=== PATIENT | male | born 1975 | race Caucasian/White ===

== ENCOUNTER 2018-11-03 21:19 | Observation (INO) | payer OTHER ==
[2018-11-03 22:14] LABS: Absolute Lymphocytes (CBC) 3.8 K/uL (0.7-4.9); Absolute Monocytes 0.9 K/uL (0.1-1.3); Absolute Neutrophil 5.8 K/uL (1.8-8.0); Basophils % 0.9 % (0-1.3); Eosinophils % 3.8 % (0-4.4); Hematocrit 45.3 % (39.6-49.0); Lymphocytes % 34.6 % (15.3-44.8); MPV 8.8 fL (7.6-11.3); Monocytes % 8.5 % (3.3-12.3); RBC Red Blood Cell Count 4.96 M/uL (4.33-5.43)
[2018-11-03 22:21] LABS: Protime INR 1.06
[2018-11-03 22:33] LABS: ALT/SGPT 93 U/L (12-78); AST/SGOT 43 U/L (15-37); Albumin 3.6 g/dL (3.4-5.0); Alkaline Phosphatase 102 U/L (45-117); BUN Blood Urea Nitrogen 11 mg/dL (7-18); Bicarbonate 25 mmol/L (21-32); Bilirubin Direct 0.2 mg/dL (0-0.2); Bilirubin Total 0.6 mg/dL (0.2-1.0); Glucose Level 114 mg/dL (74-106); Magnesium 1.9 mg/dL (1.8-2.4); NT PRO-BNP 9 pg/mL (<125); Potassium 4.1 mmol/L (3.5-5.1); Protein, Total 7.7 g/dL (6.4-8.2); Sodium Level 138 mmol/L (136-145); Troponin (Emerg Dept Use Only) < 0.02 ng/mL (0.0-0.045)
--- NOTE | 2018-11-04 00:25 | EDPHYS ---
Physician Documentation [facility] Name: Miguel Naranjo Age: 43 yrs Sex: Male : 1975 Arrival Date: 11/03/2018 Time: 21:22 Bed 26 Private MD: ED Physician Antolin Hoskins HPI: 11/03 21:54 This 43 yrs old Male presents to ER via Ambulatory with complaints of Chest jmm Discomfort, High Blood Pressure. 21:54 The patient or guardian reports chest pain that is located primarily in the substernal jmm area. Onset: gradually, this morning. The pain radiates to the left shoulder. Associated signs and symptoms: Pertinent negatives: shortness of breath. The chest pain is described as aching, tightness. Duration: The patient or guardian reports a single episode, that is now resolved. Modifying factors: The symptoms are alleviated by nothing. the symptoms are aggravated by nothing. This is a 43 year old male with a history of htn, DM, SC that presents to the ED with substernal chest pain beginning this morning worsening thoughout the day. Patient states the pain radiates to the left shoulder. . Historical: - Allergies: 21:48 No Known Allergies; mg2 - Home Meds: 11/04 00:57 metoprolol tartrate 100 mg Oral tab 1 tab once daily [Active]; losartan 50 mg oral tab mg2 1 tab once daily [Active]; metformin 1,000 mg Oral tab 1 tab 2 times per day [Active]; glimepiride 2 mg Oral tab once daily [Active]; One-A-Day Men's Multivitamin oral oral [Active]; aspirin 81 mg Oral chew 1 tab once daily [Active]; marisol red ultra strength [Active]; atorvastatin 10 mg oral tab 1 tab once daily [Active]; - PMHx: 11/03 21:48 Hypertension; Diabetes - NIDDM; Myocardial infarction; mg2 11/04 00:57 Hyperlipidemia; mg2 - PSHx: 11/03 21:48 Heart stents; mg2 - Immunization history:: Flu vaccine is not up to date. - Social history:: Smoking status: Patient uses tobacco products, smokes one pack cigarettes per day. Patient uses alcohol, but reports only rare drinking. Patient/guardian denies using IV drugs. - Ebola Screening: : No symptoms or risks identified at this time. ROS: 21:54 Constitutional: Negative for fever, chills, and weight loss. [facility] 21:54 Abdomen/GI: Negative for abdominal pain, nausea, vomiting, diarrhea, and constipation, MS/Extremity: Negative for injury and deformity, Skin: Negative for injury, rash, and discoloration, Neuro: Negative for headache, weakness, numbness, tingling, and seizure. 21:54 Cardiovascular: Positive for chest pain. 21:54 Respiratory: Negative for shortness of breath. 21:54 All other systems are negative. Exam: 21:54 Head/Face: atraumatic. Eyes: EOMI, no conjunctival erythema appreciated ENT: Moist [facility] Mucus Membranes Neck: Trachea midline, Supple Chest/axilla: Normal chest wall appearance and motion. 21:54 Constitutional: The patient appears in no acute distress, alert, awake. 21:54 Cardiovascular: Rate: normal, Rhythm: regular, Pulses: no pulse deficits are appreciated. 21:54 Respiratory: the patient does not display signs of respiratory distress, Respirations: normal, Breath sounds: are clear throughout. 21:54 Abdomen/GI: Inspection: abdomen appears normal, Bowel sounds: normal, Palpation: abdomen is soft and non-tender, in all quadrants. 21:54 Back: ROM is normal. 21:54 Musculoskeletal/extremity: ROM: intact in all extremities. 21:54 Skin: Appearance: Color: normal in color. 21:54 Neuro: Orientation: is normal, Mentation: is normal, Memory: is normal. 21:54 Psych: Behavior/mood is pleasant, cooperative. Vital Signs: 21:47 BP 162 / 82; Pulse 82; Resp 18; Temp 99.2; Pulse Ox 96% on R/A; Weight 121.56 kg; mg2 Height 5 ft. 7 in. (170.18 cm); Pain 0/10; 23:15 BP 146 / 79; Pulse 82; Resp 18; Pulse Ox 95% on R/A; Pain 0/10; mg2 23:58 BP 136 / 80; Pulse 81; Resp 18; Pulse Ox 96% on R/A; Pain 0/10; mg2 21:47 Body Mass Index 41.97 (121.56 kg, 170.18 cm) mg2 MDM: 21:[address] [facility] 11/04 00:17 The patient was given aspirin in the Emergency Department. Data reviewed: vital signs, [facility] nurses notes, lab test result(s), EKG, radiologic studies, plain films. 00:23 Counseling: I had a detailed discussion with the patient and/or guardian regarding: the [facility] historical points, exam findings, and any diagnostic results supporting the discharge/admit diagnosis, lab results, the need for further work-up and treatment in the hospital. ED course: I discussed the patient with Dr. To whom accepted admission for Dr. Will. . 11/03 21:43 Order name: Basic Metabolic Panel; Complete Time: 22:34 [facility] 11/03 23:49 Interpretation: Within normal limits: NA 138. [facility] 11/03 21:43 Order name: CBC with Diff; Complete Time: 22:34 [facility] 11/03 21:43 Order name: LFT's; Complete Time: 22:34 [facility] 11/03 21:43 Order name: Magnesium; Complete Time: 22:34 [facility] 11/03 21:43 Order name: NT PRO-BNP; Complete Time: 22:34 [facility] 11/03 21:43 Order name: PT-INR; Complete Time: 22:34 [facility] 11/03 21:43 Order name: Troponin (emerg Dept Use Only); Complete Time: 22:34 [facility] 11/03 22:21 Order name: D-Dimer; Complete Time: 22:34 [facility] 11/04 00:11 Order name: Troponin I [facility] 11/04 00:28 Order name: Basic Metabolic Panel [facility] 11/04 00:28 Order name: Basic Metabolic Panel [facility] 11/04 00:28 Order name: CBC with Automated Diff [facility] 11/04 00:28 Order name: CBC with Automated Diff [facility] 11/03 21:43 Order name: XRAY Chest (1 view) [facility] 11/03 21:43 Order name: EKG; Complete Time: 21:44 [facility] 11/03 21:43 Order name: Cardiac monitoring; Complete Time: 22: [facility] 11/03 21:43 Order name: EKG - Nurse/Tech; Complete Time: 22:01 [facility] 11/03 21:43 Order name: IV Saline Lock; Complete Time: 22: [facility] 11/03 21:43 Order name: Labs collected and sent; Complete Time: 22: [facility] 11/03 21:43 Order name: O2 Per Protocol; Complete Time: 22: [facility] 11/04 00:28 Order name: EKG Electrocardiogram [facility] 11/04 00:28 Order name: EKG Electrocardiogram [facility] 11/04 00:28 Order name: EKG Electrocardiogram [facility] 11/04 00:28 Order name: EKG Electrocardiogram [facility] 11/04 00:28 Order name: Troponin I [facility] 11/04 00:28 Order name: Troponin I [facility] 11/04 00:28 Order name: Troponin I [facility] 11/03 21:43 Order name: O2 Sat Monitoring; Complete Time: 22:01 [facility] Administered Medications: 00:26 Not Given (Physician Discretion): Aspirin Chewable Tablet 324 mg PO once; 81 mg tablets mg2 x 4 00:26 Drug: Aspirin Chewable Tablet 162 mg Route: PO; mg2 01:00 Follow up: Response: No adverse reaction mg2 Disposition: 01:36 Co-signature as Attending Physician, Antolin Hoskins MD. pkroberto carlos Disposition: 11/04/18 00:25 Hospitalization ordered by Louie Will for Observation. Preliminary diagnosis is Chest pain, unspecified. - Bed requested for Telemetry/MedSurg (observation). - Status is Observation. mg2 - Condition is Stable. - Problem is an ongoing problem. - Symptoms have improved. UTI on Admission? No Signatures: Dispatcher [employer] [facility] Megan Bran RN RN Antolin Way MD MD pkl Morteza Henderson PA PA Wilfred Narvaez RN RN mg2 Corrections: (The following items were deleted from the chart) 11/03 22:20 22:08 D-DIMER+COAG.LAB.BRZ ordered. [facility] 11/04 00:35 00:25 Hospitalization Ordered by Louie Will MD for Observation. Preliminary diagnosis mw is Chest pain, unspecified. Bed requested for Telemetry/MedSurg (observation). Status is Observation. Condition is Stable. Problem is an ongoing problem. Symptoms have improved. UTI on Admission? No. akt : 00:35 11/04/2018 00:25 Hospitalization Ordered by Louie Will MD for Observation. mg2 Preliminary diagnosis is Chest pain, unspecified. Bed requested for Telemetry/MedSurg (observation). Status is Observation. Condition is Stable. Problem is an ongoing problem. Symptoms have improved. UTI on Admission? No. mw
--- NOTE | 2018-11-04 00:25 | ER ---
Nurse's Notes [facility] Name: Miguel Naranjo Age: 43 yrs Sex: Male : 1975 Arrival Date: 11/03/2018 Time: 21:22 Bed 26 Private MD: Diagnosis: Chest pain, unspecified Presentation: 11/03 21:45 Presenting complaint: Patient states: on and off chest pain, dizziness and shortness of mg2 breath since morning. history of OR when he was 34 years old. Transition of care: patient was not received from another setting of care. Onset of symptoms was November 03, 2018. Risk Assessment: Do you want to hurt yourself or someone else? Patient reports no desire to harm self or others. Initial Sepsis Screen: Does the patient meet any 2 criteria? No. Patient's initial sepsis screen is negative. Does the patient have a suspected source of infection? No. Patient's initial sepsis screen is negative. Care prior to arrival: None. 21:45 Method Of Arrival: Ambulatory mg2 21:45 Acuity: ANSELMO 3 mg2 Historical: - Allergies: 21:48 No Known Allergies; mg2 - Home Meds: 11/04 00:57 metoprolol tartrate 100 mg Oral tab 1 tab once daily [Active]; losartan 50 mg oral tab mg2 1 tab once daily [Active]; metformin 1,000 mg Oral tab 1 tab 2 times per day [Active]; glimepiride 2 mg Oral tab once daily [Active]; One-A-Day Men's Multivitamin oral oral [Active]; aspirin 81 mg Oral chew 1 tab once daily [Active]; marisol red ultra strength [Active]; atorvastatin 10 mg oral tab 1 tab once daily [Active]; - PMHx: 11/03 21:48 Hypertension; Diabetes - NIDDM; Myocardial infarction; mg2 11/04 00:57 Hyperlipidemia; mg2 - PSHx: 11/03 21:48 Heart stents; mg2 - Immunization history:: Flu vaccine is not up to date. - Social history:: Smoking status: Patient uses tobacco products, smokes one pack cigarettes per day. Patient uses alcohol, but reports only rare drinking. Patient/guardian denies using IV drugs. - Ebola Screening: : No symptoms or risks identified at this time. Screenin:01 Abuse screen: Denies threats or abuse. Denies injuries from another. Nutritional mg2 screening: No deficits noted. Tuberculosis screening: No symptoms or risk factors identified. Fall Risk IV access (20 points). Assessment: 22:02 General: Appears in no apparent distress. comfortable, Behavior is calm, cooperative. mg2 Pain: Denies pain. Neuro: Level of Consciousness is awake, alert, obeys commands, Oriented to person, place, time, situation. Neuro: Reports dizziness. Cardiovascular: Capillary refill < 3 seconds Patient's skin is warm and dry. Chest pain on and off chest since morning. Respiratory: Airway is patent Respiratory effort is even, unlabored, Respiratory pattern is regular, symmetrical. GI: No signs and/or symptoms were reported involving the gastrointestinal system. : No signs and/or symptoms were reported regarding the genitourinary system. EENT: No signs and/or symptoms were reported regarding the EENT system. Derm: Skin is intact, is healthy with good turgor, Skin is pink, warm \T\ dry. normal. Musculoskeletal: No signs and/or symptoms reported regarding the musculoskeletal system. Vital Signs: 21:47 BP 162 / 82; Pulse 82; Resp 18; Temp 99.2; Pulse Ox 96% on R/A; Weight 121.56 kg; mg2 Height 5 ft. 7 in. (170.18 cm); Pain 0/10; 23:15 BP 146 / 79; Pulse 82; Resp 18; Pulse Ox 95% on R/A; Pain 0/10; mg2 23:58 BP 136 / 80; Pulse 81; Resp 18; Pulse Ox 96% on R/A; Pain 0/10; mg2 21:47 Body Mass Index 41.97 (121.56 kg, 170.18 cm) mg2 ED Course: 21:22 Patient arrived in ED. ds1 21:39 Morteza Henderson PA is PHCP. jmm 21:39 Antolin Hoskins MD is Attending Physician. [facility] 21:47 Triage completed. mg2 21:49 Wilfred Galdamez, KENYON is Primary Nurse. mg2 22:02 No provider procedures requiring assistance completed. Inserted saline lock: 22 gauge mg2 in left antecubital area, using aseptic technique. Blood collected. 22:02 Patient has correct armband on for positive identification. environmental monitoring specialist on. Pulse mg2 ox on. NIBP on. Door closed. 22:04 Arm band placed on. mg2 22:20 X-ray completed. Portable x-ray completed in exam room. Patient tolerated procedure ls3 well. 22:23 XRAY Chest (1 view) In Process Unspecified. EDMS 11/04 00:24 Louie Will MD is Hospitalizing Provider. [facility] 00:57 Patient admitted, IV remains in place. mg2 Administered Medications: 00:26 Not Given (Physician Discretion): Aspirin Chewable Tablet 324 mg PO once; 81 mg tablets mg2 x 4 00:26 Drug: Aspirin Chewable Tablet 162 mg Route: PO; mg2 01:00 Follow up: Response: No adverse reaction mg2 Outcome: 00:25 Decision to Hospitalize by Provider. [facility] 00:57 Admitted to Tele accompanied by tech, via wheelchair, room 404, with chart, Report mg2 called to KENYON Temple 00:57 Condition: stable 00:57 Instructed on the need for admit, Demonstrated understanding of instructions. 01:01 Patient left the ED. mg2 Signatures: Dispatcher [employer] EDMS Morteza Henderson PA PA jmm Sanford, Demi ds1 Wilfred Galdamez, RN RN mg2 Papito Bennett ls3
[2018-11-04] MEDS ORDERED: ACETAMINOPHEN 500 MG TAB PO PRN (00:26)
[2018-11-04] MEDS ORDERED: ONDANSETRON 4 MG/2 ML VIAL IV PRN (00:26)
[2018-11-04] MEDS ORDERED: ASPIRIN 81 MG CHEWABLE TABLET ONE (00:28)
[2018-11-04 07:28] LABS: Urine Appearance CLEAR; Urine Bilirubin NEGATIVE (NEG); Urine Blood NEGATIVE (NEG); Urine Color YELLOW; Urine Glucose NEGATIVE (NEG); Urine Protein NEGATIVE (NEG); Urine Specific Gravity 1.025 (1.005-1.030); Urine Urobilinogen 0.2 mg/dL (0.2-1.0)
[2018-11-04 07:30] LABS: Urine Microscopic Reflex NO UMIC
--- NOTE | 2018-11-04 07:57 | RAD REPORT ---
EXAM DESCRIPTION: RAD - Chest Single View - 11/03/2018 10:22 pm CLINICAL HISTORY: Chest pain COMPARISON: April 2010 TECHNIQUE: AP portable chest image was obtained 2208 hours . FINDINGS: Lungs are clear. Heart and vasculature are normal. No measurable pleural effusion and no p neumothorax. No acute bony abnormality seen. No acute aortic findings suspected. IMPRESSION: No acute cardiopulmonary process. No suspicious interval change.
--- NOTE | 2018-11-04 07:58 | EKG ---
Test Date: 2018-11-03 Test Time: 21:38:30 Insulation Helper: MEASUREMENT RESULTS: Intervals: Rate: 84 MI: 150 QRSD: 88 QT: 352 QTc: 415 [place]: P: 52 MI: 150 QRS: 47 T: 29 INTERPRETIVE STATEMENTS: Normal sinus rhythm Normal ECG Compared to ECG 04/12/2010 05:55:22 Sinus arrhythmia no longer present ST (T wave) deviation no longer present Electronically Signed On 11-04-18 07:57:04 CLUB STEWARD by Laith Fischer
[2018-11-04] MEDS ORDERED: GLIMEPIRIDE 2 MG TABLET PO SCH (08:00)
[2018-11-04] MEDS ORDERED: METFORMIN HCL 500 MG TAB PO SCH (08:00)
[2018-11-04] MEDS ORDERED: METOPROLOL XL 100 MG TAB PO SCH (09:00)
[2018-11-04] MEDS ORDERED: LOSARTAN POTASSIUM 50 MG TABLET PO SCH (09:00)
[2018-11-04] MEDS ORDERED: ASPIRIN EC 81 MG TAB PO SCH ×2 (09:00)
[2018-11-04] MEDS ORDERED: [UNRECOGNIZED DRUG - OTHER] PO SCH (09:00)
[2018-11-04] MEDS ORDERED: REGADENOSON 0.4 MG/5 ML SYR IV ONE (09:32)
--- NOTE | 2018-11-04 11:05 | ECHO ---
HEIGHT: 5 ft 7 in WEIGHT: 263 lb 0 oz DATE OF STUDY: 11/04/[address]: Laith Fischer MD 2-DIMENSIONAL: YES M.MODE: YES DOPPLER: YES COLOR FLOW: YES TDS: NO PORTABLE: NO DEFINITY: NO BUBBLE STUDY: NO DIAGNOSIS: CHEST PAIN CARDIAC HISTORY: CATHERIZATION: NO SURGERY: NO PROSTHETIC VALVE: NO PACEMAKER: NO MEASUREMENTS (cm) DIASTOLIC (NORMALS) SYSTOLIC (NORMALS) IVSd 1.2 (0.6-1.2) LA Diam 3.4 (1.9-4.0) LVEF 69% LVIDd 3.6 (3.5-5.7) LVIDs 2.2 (2.0-3.5) %FS 38% LVPWd 1.1 (0.6-1.2) Ao Diam 2.4 (2.0-3.7) 2 DIMENSIONAL ASSESSMENT: RIGHT ATRIUM: NORMAL LEFT ATRIUM: NORMAL RIGHT VENTRICLE: NORMAL LEFT VENTRICLE: NORMAL TRICUSPID VALVE: NORMAL MITRAL VALVE: NORMAL PULMONIC VALVE: NORMAL AORTIC VALVE: NORMAL PERICARDIAL EFFUSION: NONE AORTIC ROOT: NORMAL LEFT VENTRICULAR WALL MOTION: NORMAL. DOPPLER/COLOR FLOW: NORMAL. COMMENTS: NORMAL 2D ECHO WITH DOPPLER TECHNOLOGIST: CARLOS HADDAD
--- NOTE | 2018-11-04 13:37 | CON ---
History Of Present Illness: Mr. Naranjo is 43. He came to the hospital with chest pain. Mr. Diamond greenberg has a history of CAD. A stent was placed in one of his arteries in 2007 or 2008. Since then, he h as had no further interventions. He sees Dr. Carlson. He says it has been many years since he had any testing done on his heart. He is a continuing cigarette smoker. Alcohol use, moderate. Medications: Outpatient medications are Megace, multivitamin, aspirin, metformin, glimepiride, losar doll, metoprolol, and atorvastatin 10 mg. Allergies: HE HAS NO ALLERGIES. Past Medical History: He has underlying diabetes, hypertension, remote history of coronary heart dis ease, and obesity. Physical Examination: Vital signs: Five feet and 7 inch, 263 pounds. HEENT: Normal. Lungs: Clear. Carotids: No bruit. Heart: Within normal limits. Extremities: No cyanosis, clubbing, or edema. Laboratory Data: Laboratory exam reveals normal troponins. Blood sugar 114. Impression: I think the patient should have a nuclear stress test and echo. We will base our decisi on whether to repeat a cardiac cath on those 2 tests. Thank you very much for your kind referral of Mr. Naranjo. I will follow him with you. JESU/MEGAN Voice ID: [id number] Report ID: [id number]
--- NOTE | 2018-11-04 14:05 | RAD REPORT ---
EXAM DESCRIPTION: NM - Rest Stress Cardiac Imaging - 11/04/2018 1:58 pm CLINICAL HISTORY: CP Chest pain. COMPARISON: No comparisons TECHNIQUE: The patient was administered approximately 10mCi of Tc 99m Sestamibi prior to resting SPE CT imaging of the heart. The patient was then administered approximately 30 mCi of Tc 99m Sestamibi f ollowing exercise or pharmacologic stress. Multiplanar SPECT images were reviewed. FINDINGS: No stress induced ischemic defect is seen to suggest stress induced ischemia. No fixed def ect is seen to suggest hibernating myocardium or scarred myocardium. The end diastolic volume is 73 ml, the end systolic volume is 26 ml, and the ejection fraction is 65 %. IMPRESSION: No stress induced ischemia.
--- NOTE | 2018-11-04 15:16 | RAD REPORT ---
EXAM DESCRIPTION: CT - Angio Aorta For Dissection - 11/04/2018 3:08 pm CLINICAL HISTORY: Chest pain radiating to the back. chest pain COMPARISON: No comparisons TECHNIQUE: CT angiography of the aorta was performed with MIPs. All CT scans are performed using dose optimization technique as appropriate and may include automated exposure control or mA/KV adjustment according to patient size. FINDINGS: A left aortic arch is present with normal branching pattern of the great vessels.No acute aortic finding is seen such as aneurysm, penetrating ulcer or dissection. The celiac axis, SMA, BRYSON and renal arteries are widely patent. No evidence of pulmonary embolism. The lungs are clear. Diffuse fatty liver is noted.The spleen, pancreas, adrenal glands and kidneys are within normal limit s for arterial phase imaging. No bowel obstruction, free fluid or abscess.No pathologic enlarged lymphadenopathy identified. No fracture or worrisome bone lesion seen. IMPRESSION: No acute aortic finding is demonstrated. Diffuse fatty liver.
--- NOTE | 2018-11-04 15:28 | TREADPHA ---
DX: CHEST PAIN Date of Study: 11/04/2018 Ht: 5 7 Wt: 263 lb 0 oz Consulting Physician: DR. GARCIA MEDICATIONS: TYLENOL, ASPIRIN, LIPITOR, COZAAR, TORPOL XL HISTORY: 43 YEAR OLD MALE WITH COMPLAINTS OF CHEST PAIN. MEDICAL HISTORY OF HYPERTENSION, DIABETES, MYOCARDIAL INFARCTION, HYPERLIPIDEMIA, STENT PLACEMENT 2009. PHYSICIAL EXAMINATION: RESTING B.P.: 141/84 RESTING H.R.: 90 RESTING EKG: NORMAL PROTOCOL: LEXISCAN EXERCISE TIME: 3:30 B.P. AT PEAK STRESS: 158/59 IMPRESSION: LEXISCAN INJECTED, FOLLOWED BY CARDIOLITE PER PROTOCOL. SEE NUCLEAR MEDICINE REPORT. NO SUPRAVENTRICULAR TACHYCARDIA. NO VENTRICULAR TACHYCARDIA. NO PREMATURE ATRIAL COMPLEXES. NO PREMATURE VENTRICULAR COMPLEXES. PATIENT REPORTED NO CHEST PAIN OR TIGHTNESS THROUGHTOUT PROCEDURE. NON DIAGNOSTIC ELECTRICARDIOGRAM LEXISCAN STUDY.
--- NOTE | 2018-11-04 17:29 | P.SSS ---
Patient History Date of Service: 11/04/18 Reason for admission: CHEST PAIN History of Present Illness: MR. DICKERSON IS A DIABETIC, SMOKER WITH HYPERTENSION. COMES WITH CHEST PAIN AND RADIATION TO L ARM AND BACK. HIS STRESS TEST IS NEGATIVE. I ORDERED CT DISSECTION PROTOCOL THAT IS NEGATIVE. HE IS STABLE TO GO HOME. HE WILL QUIT SMOKING. I HAVE ADVISED TABEX FOR IT. HE HAS NOT TRIED YET. HE DOES NOT WANT CHANTIX. Allergies No Known Allergies Allergy (Verified 11/04/18 02:55) Home Medications: Aspirin [Adult Aspirin] 81 mg PO DAILY 11/04/18 Atorvastatin Calcium [Lipitor] 10 mg PO DAILY 11/04/18 Glimepiride 2 mg PO DAILY 11/04/18 Losartan Potassium [Cozaar] 50 mg PO DAILY 11/04/18 Kishore-Red Ultra Strength 1,000 mg PO DAILY 11/04/18 Metformin HCl 1,000 mg PO BID 11/04/18 Metoprolol Succinate [Toprol Xl] 100 mg PO DAILY 11/04/18 Multivit-Minerals/FA/Lycopene [One Daily Men's Health Tablet] 1 each PO DAILY - Past Medical/Surgical History Has patient received pneumonia vaccine in the past: No Diabetic: Yes -: htn -: dm -: mi -: stent x1 - Social History Smoking Status: Current every day smoker Alcohol use: Yes CD- Drugs: No Caffeine use: Yes Place of Residence: Home Review of Systems 10-point ROS is otherwise unremarkable Physical Examination - Vital Signs Temperature: 97.2 F Blood Pressure: 146/65 Pulse: 80 Respirations: 18 Pulse Ox (%): 97 - Physical Exam General: Alert, Mild distress, Obese HEENT: Atraumatic, PERRLA, Mucous membr. moist/pink, EOMI, Sclerae nonicteric Neck: Supple, 2+ carotid pulse no bruit, No LAD, Without JVD or thyroid abnormality Respiratory: Clear to auscultation bilaterally, Normal air movement Cardiovascular: Regular rate/rhythm, Normal S1 S2 Gastrointestinal: Normal bowel sounds, No tenderness Musculoskeletal: No tenderness Integumentary: No rashes Neurological: Normal gait, Normal speech, Normal strength at 5/5 x4 extr, Normal tone, Normal affect Lymphatics: No axilla or inguinal lymphadenopathy - Studies Laboratory Data (last 24 hrs) 11/04/18 00:20: Troponin I < 0.02 11/03/18 21:50: PT 12.5, INR 1.06 11/03/18 21:50: WBC 11.1 H, Hgb 15.4, Hct 45.3, Plt Count 248 11/03/18 21:50: Sodium 138, Potassium 4.1, BUN 11, Creatinine 0.96, Glucose 114 H, Magnesium 1.9, Total Bilirubin 0.6, AST 43 H, ALT 93 H, Alkaline Phosphatase 102 - Diagnosis (Problem(s)) (1) Chest pain Status: Acute Plan: ABOVE, NEG [place] QUIT SMOKING. STABLE FOR HOME. FU IN 1 WEEK. (2) Diabetes Status: Acute Plan: A1C IS 8.7. DIET IS POOR. HABITS ARE POOR. WILL FU IN ONE WEEK. (3) HTN (hypertension) Status: Acute - Disposition Disposition: ROUTINE DISCHARGE
[2018-11-04] MEDS ORDERED: ATORVASTATIN 10 MG TAB PO SCH (21:00)
== END 2018-11-04 16:23 | disposition home or self-care (01) ==
LOC: ER 21:19 → ERHOLD 11-04 00:30 → 4TH 11-04 00:52
PROVIDERS: ADMIT Internal Medicine; ATTEND Internal Medicine
DX: R07.9 Chest pain, unspecified (principal); E11.9 Type 2 diabetes mellitus without complications; I10 Essential (primary) hypertension; F17.210 Nicotine dependence, cigarettes, uncomplicated; I25.10 Atherosclerotic heart disease of native coronary artery without angina pectoris; E66.9 Obesity, unspecified; Z68.41 Body mass index [BMI] 40.0-44.9, adult; I25.2 Old myocardial infarction; Z95.5 Presence of coronary angioplasty implant and graft; Z79.82 Long term (current) use of aspirin
CPT/HCPCS: 36415; 71045; 71275; 74175; 78452; 80048; 80076; 81003; 83735; 83880; 84484; 85025; 85379; 85610; 87086; 87088; 93005; 93017; 93306; 99285; A9500; G0378; J2785; Q9967